=== PATIENT | male | born 1980 ===

== ENCOUNTER 2017-12-23 22:19 | Emergency (ER) | payer OTHER ==
[2017-12-23 22:31] VITALS: BP 126/76; PULSE 70; RESP 20; TEMP 97.8; O2SAT 97
--- NOTE | 2017-12-23 23:31 | C.PDOC ---
History Of Present Illness 37 year old male presents to the ER for allergic reaction. 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 Denies SOB, chest pain, difficulty swallowing, or difficulty talking. Patient recently had surgery on his vocal cord. Time Seen by Provider: 12/23/17 22:36 Chief Complaint (Nursing): Abnormal Skin Integrity History Per: Patient History/Exam Limitations: no limitations Onset/Duration Of Symptoms: Hrs Current Symptoms Are (Timing): Still Present Quality Of Symptoms: Itching Recent travel outside of the [place]: No Past Medical History Reviewed: Historical Data, Nursing Documentation, Vital Signs Vital Signs: Last Vital Signs Temp 97.8 F 12/23/17 22:27 Pulse 70 12/23/17 22:27 Resp 20 12/23/17 22:27 BP 126/76 12/23/17 22:27 Pulse Ox 97 12/23/17 22:27 - Medical History Other PMH: Psoriasis Family History: States: Unknown Family Hx - Social History Hx Alcohol Use: No Hx Substance Use: No - Immunization History Hx Tetanus Toxoid Vaccination: No Hx Influenza Vaccination: No Hx Pneumococcal Vaccination: No Review Of Systems Constitutional: Negative for: Fever, Chills ENT: Negative for: Mouth Swelling, Throat Swelling Cardiovascular: Negative for: Chest Pain Respiratory: Negative for: Cough, Shortness of Breath, Wheezing Skin: Positive for: Rash Physical Exam - Physical Exam Appears: Non-toxic, Other (Hoarse voice which is chronic) Skin: Warm, Dry, Rash (Multiple psoriatic lesions to trunk and upper extremities. Urticarial rash to neck and upper anterior chest.) Head: Atraumatic, Normacephalic Eye(s): bilateral: Normal Inspection Ear(s): Bilateral: Normal Nose: Normal Oral Mucosa: Moist Throat: Normal, No Other (Swelling) Neck: Normal, Supple, No Other (Swelling) Chest: Symmetrical, No Tenderness Cardiovascular: Rhythm Regular Respiratory: Normal Breath Sounds, No Accessory Muscle Use, No Rales, No Rhonchi, No Stridor, No Wheezing Neurological/Psych: Oriented x3, Normal Speech ED Course And Treatment O2 Sat by Pulse Oximetry: 97 (room air) Pulse Ox Interpretation: Normal Progress Note: Benadryl, pepcid, and prednisone administered. On reevaluation, patient reports improvement of symptoms, he is resting comfortably in the ER in no acute distress, vitals are stable, will discharge home with Rx and instructions to follow up with PMD or return if symptoms worsen. Disposition - Disposition Referrals: Tato Garcia MD [Staff Provider] - Kisha Shell MD [Staff Provider] - Ajit Patel MD [Staff Provider] - Disposition: HOME/ ROUTINE Disposition Time: 23:28 Condition: STABLE Additional Instructions: Follow up with PMD within 1-2 days. Return to ED if feel worse. Prescriptions: DiphenhydrAMINE [Benadryl] 25 mg PO .Q4-6 H #30 cap Famotidine [Pepcid] 20 mg PO BID #20 tab predniSONE [predniSONE Tab] 2 tab PO DAILY #8 tab Instructions: Rober (DC) Forms: [employer] (Georgian) Print Language: VIETNAMESE - Clinical Impression Clinical Impression: Hives - PA / PROJECT INSPECTOR / Resident Statement MD/DO has reviewed & agrees with the documentation as recorded. - Scribe Statement The provider has reviewed the documentation as recorded by the Scribe Sergio Fu All medical record entries made by the Amintaibangela were at my direction and personally dictated by me. I have reviewed the chart and agree that the record accurately reflects my personal performance of the history, physical exam, medical decision making, and the department course for this patient. I have also personally directed, reviewed, and agree with the discharge instructions and disposition.
== END 2017-12-23 23:35 | disposition home or self-care (01) ==
LOC: C.ER 22:19
DX: L50.9 Urticaria, unspecified (principal)